=== PATIENT | female | born 1995 | race American Indian/Alaskan Native ===

== ENCOUNTER 2019-08-14 19:45 | Inpatient (IN) | payer OTHER ==
[2019-08-14] MEDS ORDERED: LACTATED RINGERS 1,000 ML IV SCH ×2 (21:00→23:00)
[2019-08-14] MEDS ORDERED: BUTORPHANOL 2 MG/1 ML INJ IV ONE (21:00)
--- NOTE | 2019-08-14 21:29 | Ultrasound Report ---
Limited obstetrical ultrasound INDICATION: , labor Intrauterine is seen with well-developed fetus in a cephalic position. Cardiac activity was documented with heart rate of 134 bpm. The placenta is fundal with no evidence of abruption. P lacental grade is 3 which is advanced for the stated gestational age of 21 weeks. Dating was not perf ormed as an anatomic survey was not performed. Assessment of amniotic fluid was not performed. Signer Name: Kirby Hernandez MD Signed: 08/14/2019 9:24 PM Workstation Name: [id number]
[2019-08-14] MEDS ORDERED: OXYTOCIN 20 UNIT/1000ML DRIP 20,000 MILLIUNITS/1,000 ML BAG IV ONE (22:05)
[2019-08-14] MEDS ORDERED: OXYTOCIN 10 UNIT/1 ML INJ ONE (22:12)
[2019-08-14] MEDS ORDERED: WITCH HAZEL/ GLYCERIN PAD TP PRN (22:44)
[2019-08-14] MEDS ORDERED: HYDROcodone/ACETAMINOPHEN 5-325 MG TAB PO PRN (22:44)
[2019-08-14] MEDS ORDERED: MAGNESIUM HYDROXIDE (MOM) ORAL LIQD UDC PO PRN (22:44)
[2019-08-14] MEDS ORDERED: PROMETHAZINE 25 MG RECT SUPP PR PRN (22:44)
[2019-08-14] MEDS ORDERED: LANOLIN/ZINC/DIMETHICONE (LANSINOH) 7 GM TP PRN (22:44)
[2019-08-14] MEDS ORDERED: OXYTOCIN 20 UNIT/1000ML DRIP 20 UNITS/1,000 ML BAG IV SCH (23:00)
--- NOTE | 2019-08-14 23:08 | History and Physical Report ---
History of Present Illness Date of examination: 08/14/19 Date of admission: 08/14/19 22:28 Chief complaint: Contractions History of present illness: 33 year old female presents in active labor. No records are available. LMP 03/20/2019. EDC unknown. Patient initiated care yesterday at [facility]. She states she did not yet have lab work done or an US. LMP 03/20/19. EDC uncerain. labs have been drawn upon admission. Past History Past Medical History: denies: no pertinent history Past Surgical History: denies: no surgical history [employer] [employer] History: denies: chlamydia, fibroids, gonorrhea, hepatitis B, hepatitis C, HIV, syphilis, trichomonas Family/Genetic History: none Social history: single. denies: smoking, alcohol abuse, prescription drug abuse, IV drug use, full code - Obstetrical History Expected Date of Delivery: 12/25/19 Actual Gestation: 21 Week(s) 1 Day(s) : 1 Para: 0 Hx # Term Pregnancies: 0 Number of Pregnancies: 0 Spontaneous Abortions: 0 Induced : 0 Number of Living Children: 0 Medications and Allergies Allergies Allergy/AdvReac Type Severity Reaction Status Date / Time Penicillins Allergy Rash Verified 08/14/19 20:11 Active Meds: Active Medications Acetaminophen/Hydrocodone Bitart ([place] 5/325) 2 each PO Q6H PRN PRN Reason: Pain, Moderate (4-6) Lactated Ringer's (Lactated Ringers) 1,000 mls @ 125 mls/hr IV DIRECT MAGUI Last Admin: 08/14/19 20:53 Dose: 125 mls/hr Documented by: Oxytocin/Sodium Chloride (Pitocin/Ns 20 Unit/1000ml Drip) 20 units in 1,000 mls @ 125 mls/hr IV DIRECT MAGUI Ibuprofen (Ibuprofen) 600 mg PO Q6HR MAGUI Magnesium Hydroxide (Milk Of Magnesia) 30 ml PO HS PRN PRN Reason: Constipation Multi-Ingredient Ointment (Lansinoh) 1 applic TP PRN PRN PRN Reason: Sore Nipples Promethazine HCl (Phenergan) 25 mg MA Q6H PRN PRN Reason: Nausea And Vomiting Sodium Chloride (Sodium Chloride Flush Syringe 10 Ml) 10 ml IV PRN NR Stop: 08/15/19 22:59 Witch Krysta/Glycerin (Tucks Pad) 1 each TP PRN PRN PRN Reason: Hemorrhoid/cleansing/soothing Review of Systems All systems: negative (pelvic pain) - Vital Signs Vital signs: Vital Signs Temp Pulse Resp BP 97.8 F 86 24 127/70 08/14/19 19:51 08/14/19 19:51 08/14/19 19:51 08/14/19 19:51 Temp Pulse Resp BP Pulse Ox 97.8 F 69 24 115/78 08/14/19 19:51 08/14/19 22:59 08/14/19 19:51 08/14/19 22:59 - Physical Exam Abdomen: Positive: other (gravid). Negative: distention, tenderness, guarding, rigidity Genitourinary (Female): Positive: normal external genitalia, normal perenium. Negative: perineal/vulvar lesions Extremities: Negative: tenderness, edema - Obstetrical Uterine Contraction Monitor Mode: External Cervical Dilatation: 10 Cervical Effacement Percentage: 100 station: Uterine Contraction Pattern: Regular Uterine Contraction Intensity: Moderate Results Result Diagrams: 08/14/19 23:40 All other labs normal. Assessment and Plan A: of unknown gestational age. Imminent delivery ( head upon my arrival to room). GBS unknown. Essentially no care (1st OB visit yesterday, no labs or US). P: Vaginal delivery. Draw labs.
--- NOTE | 2019-08-14 23:08 | Procedure Note ---
OB Delivery Note - Delivery Date of Delivery: 08/14/19 Surgeon: CHRIST JEWELL Estimated blood loss: other (400 cc) - Vaginal Delivery presentation: vertex Delivery position: OA Intrapartum events: no care, precipitous labor- <3hr Delivery induction: none Delivery monitor: external FHT, external uterine Route of delivery: Delivery placenta: spontaneous Delivery cord: 3 umbilical vessels Episiotomy: none Delivery laceration: none Anesthesia: none Delivery comments: MD called me and asked me to check a pt. in triage who was supposed to be approximately 21 weeks gestation and having pelvic pain. As I entered pt.'s room, head was and appeared to be a term or near term baby. Baby delivered immediately upon my arrival into room; baby placed skin to skin with mom immediately after delivery. Placental delivery occurred immediately after delivery, accompanied by large gush of blood. Fundus firmed with massage and with IM Pitocin. EBL 400 cc. 3 VC double clamped and cut. No lacerations noted. Vaginal sweep negative. Mother and baby stable. Essentially no care; no accurate EDC. labs ordered and drawn.
[2019-08-15 00:29] LABS: Hematocrit 35.5 % (30.3-42.9); Hemoglobin 11.5 gm/dl (10.1-14.3); Mean Corpuscular HGB Conc 32 % (30-34); Mean Corpuscular Volume 85 fl (79-97); Platelet Count 281 K/mm3 (140-440); Red Blood Count 4.16 M/mm3 (3.65-5.03); Red Cell Distribution Width 14.2 % (13.2-15.2)
[2019-08-15 00:56] LABS: Hepatitis C Virus Antibody Non-Reactive (NonReactive)
[2019-08-15] MEDS ORDERED: ACETAMINOPHEN 325 MG TAB PO ONE (01:21)
[2019-08-15 01:52] LABS: Amphetamine Screen,Urine PRESUMPTIVE NEGATIVE; Benzodiazepines Screen,Urine PRESUMPTIVE NEGATIVE; Cocaine Screen,Urine PRESUMPTIVE NEGATIVE; Methadone Screen,Urine PRESUMPTIVE NEGATIVE; Opiate Screen,Urine PRESUMPTIVE NEGATIVE
[2019-08-15] MEDS ORDERED: OXYTOCIN 10 UNIT/1 ML INJ IM ONE (02:10)
[2019-08-15 02:11] LABS: Cannabinoid Screen,Urine PRESUMPTIVE POSITIVE
[2019-08-15 11:03] LABS: Hematocrit 30.6 % (30.3-42.9)
[2019-08-15] MEDS: IBUPROFEN 600 MG TAB PO SCH ×2 (12:26→18:05)
--- NOTE | 2019-08-15 14:30 | Progress Note ---
Assessment and Plan A: day 1 S/P . HIV antigen weakly positive. Anemia. P: Confirmatory test for HIV. Advised pt. to avoid . Supplement with oral iron. Subjective - Subjective Date of service: 08/15/19 Principal diagnosis: day 1 S/P Interval history: day 1 S/P . No complaints. Pt. reports small amount of lochia. HIV antigen weakly positive. Confirmatory test has been sent. aware. Discussed result with patient and need for confirmation. Pt. states this is the first HIV test she has ever taken. Patient reports: appetite normal, voiding normally, pain well controlled, flatus, ambulating normally, no dizzy ambulation, no nauseated : doing well Objective - Vital Signs Latest vital signs: Vital Signs Temp Pulse Resp BP BP Pulse Ox 08/15/19 11:47 98.1 F 70 20 111/69 94 08/15/19 08:00 98.2 F 77 20 130/75 98 08/15/19 04:35 98.7 F 66 18 109/72 97 08/15/19 01:45 98.8 F 71 18 115/69 98 08/15/19 01:10 99.7 F H 18 08/15/19 00:29 74 141/63 08/15/19 00:14 71 131/71 08/15/19 00:05 66 98 08/15/19 00:00 73 100 08/14/19 23:55 68 100 08/14/19 23:51 81 90 08/14/19 23:50 84 100 08/14/19 23:45 75 100 08/14/19 23:40 70 98 08/14/19 23:39 72 89 08/14/19 23:35 67 93 08/14/19 23:33 76 87 08/14/19 23:30 73 98 08/14/19 23:25 74 97 08/14/19 23:22 67 86 08/14/19 23:20 73 99 08/14/19 23:15 82 98 08/14/19 23:14 71 133/74 79 L 08/14/19 23:10 93 08/14/19 23:09 95.6 F L 69 18 115/78 100 08/14/19 22:59 69 115/78 08/14/19 19:57 86 127/70 08/14/19 19:51 97.8 F 86 24 127/70 Intake and Output 08/14/19 08/15/19 08/15/19 23:59 07:59 15:59 Intake Total 240 120 Output Total 400 600 Balance -160 -480 Intake: Oral 240 120 Output: Urine 400 600 Void 400 600 Other: Total, Intake Amount 240 120 Total, Output Amount 400 600 # Voids Void 1 Weight 93.44 kg Estimated Blood Loss 300 - Exam Cardiovascular: Present: Regular rate, Normal S1, Normal S2 Lungs: Present: Clear to auscultation Abdomen: Present: normal appearance, soft. Absent: distention, tenderness, guarding, rigidity Uterus: Present: normal, firm, fundal height below umbilicus. Absent: bogginess, tenderness Extremities: Present: normal. Absent: tenderness, edema - Labs Labs: Abnormal lab results 08/14/19 08/15/19 Range/Units 23:40 09:59 WBC 19.4 H (4.5-11.0) K/mm3 Hgb 10.0 L (10.1-14.3) gm/dl
[2019-08-16] MEDS: IBUPROFEN 600 MG TAB PO SCH ×3 (00:36→18:18)
--- NOTE | 2019-08-16 14:28 | Progress Note ---
Assessment and Plan A: day 2 S/P . Anemia. Weakly positive HIV antigen test result. P: Continue iron supplementation. Obtain confirmation of HIV test result (test has been sent out, awaiting results). Subjective - Subjective Date of service: 08/16/19 Principal diagnosis: day 2 S/P Interval history: day 2 S/P . No complaints. Pt. reports small amount of lochia. HIV antigen weakly positive. Confirmatory test has been sent. Awaiting results. Patient denies fever, chills, cough, sore throat, SOB, chest pain, abdominal pain, leg pain, heavy bleeding, or any other problems. Patient reports: appetite normal, voiding normally, pain well controlled, flatus, ambulating normally, no dizzy ambulation, no nauseated : doing well, bottle feeding Objective - Vital Signs Latest vital signs: Vital Signs Temp Pulse Resp BP Pulse Ox 08/16/19 08:19 97.7 F 64 16 115/62 99 08/16/19 00:36 18 08/16/19 00:19 97.6 F 70 20 120/61 96 08/15/19 23:04 18 08/15/19 22:04 18 08/15/19 15:58 98.3 F 84 20 115/78 97 Intake and Output 08/15/19 08/16/19 08/16/19 23:59 07:59 15:59 Intake Total 480 480 120 Balance 480 480 120 Intake: Oral 480 480 120 Other: Total, Intake Amount 240 240 120 # Voids Void 1 1 - Exam Abdomen: Present: normal appearance, soft. Absent: distention, tenderness, guarding, rigidity Uterus: Present: normal, firm, fundal height below umbilicus. Absent: bogginess, tenderness Extremities: Present: normal. Absent: tenderness, edema
[2019-08-16] MEDS: FERROUS SULFATE 325 MG TAB PO SCH ×2 (14:38→22:35)
--- NOTE | 2019-08-17 10:13 | Progress Note ---
Assessment and Plan - Patient Problems (1) Status post normal vaginal delivery Current Visit: Yes Status: Acute Plan to address problem: PPD 3 - stable Discharge to home today Follow with Infectious Diseases as soon as possible Follow up at [facility] as needed or in 6 weeks for exam (2) Single live Current Visit: Yes Status: Acute (3) Anemia due to blood loss, acute Current Visit: Yes Status: Acute Plan to address problem: Asymptomatic Continue iron therapy (4) Positive urine drug screen Current Visit: Yes Status: Acute Plan to address problem: + marijuana s/p Case Management Consult (5) HIV p24 antigen positive Current Visit: Yes Status: Acute Plan to address problem: Confirmation test pending Patient to follow-up with Infectious Diseases outpatient Subjective - Subjective Date of service: 08/17/19 Principal diagnosis: PPD #3; s/p Interval history: see [facility] - H&P, OB Delivery Procedure Note and PP/[facility] Progress Notes Patient reports: appetite normal, voiding normally, pain well controlled, ambulating normally, no dizzy ambulation : bottle feeding Objective - Vital Signs Latest vital signs: Vital Signs Temp Pulse Resp BP Pulse Ox 08/17/19 08:44 98.0 F 64 18 111/61 97 08/17/19 00:46 98.5 F 86 18 112/68 96 08/16/19 16:18 97.9 F 61 20 119/65 99 Intake and Output 08/16/19 08/17/19 08/17/19 23:59 07:59 15:59 Intake Total 360 360 Balance 360 360 Intake: Oral 120 120 Intake, Free Water 240 240 Other: Total, Intake Amount 120 120 # Voids Void 1 2 - Exam Cardiovascular: Present: Regular rate Lungs: Present: Clear to auscultation, Normal air movement Abdomen: Present: normal appearance, soft Vulva: both: normal Uterus: Present: normal, firm, fundal height below umbilicus Extremities: Present: normal Comments: scant lochia
--- NOTE | 2019-08-17 10:21 | Discharge Summary ---
Providers - Providers Date of Admission: 08/14/19 22:28 Date of discharge: 08/17/19 Attending physician: ALFREDO YI 08/15/19 07:58 Consult to Case Management [CONS] Routine Services Needed at Discharge: Other Notified:: Yes Phone number called:: [phone] Primary care physician: ALFREDO YI Hospitalization Reason for admission: active labor, labor Delivery: Episiotomy: none Laceration: none Other procedures: none complications: none Discharge diagnosis: delivery [place] baby: male Hospital course: Uncomplicated Disposition: DC-01 TO HOME OR SELFCARE - Discharge Diagnoses (1) Status post normal vaginal delivery Status: Acute (2) Single live Status: Acute (3) Anemia due to blood loss, acute Status: Acute Comment: Asymptomatic Continue iron therapy Eat iron-rich foods (4) Positive urine drug screen Status: Acute Comment: positive marijuana s/p Case Management Consult (5) HIV p24 antigen positive Status: Acute Comment: Confirmation test pending Patient instructed to follow-up with Infectious Diseases as soon as possible Plan - Discharge Medications Prescriptions: Ferrous Sulfate [Feosol 325 MG tab] 325 mg PO BID #60 tablet - Provider Discharge Summary Activity: routine, no sex for 6 weeks, no heavy lifting 4 weeks, no strenuous exercise Diet: routine Instructions: routine Additional instructions: [] Smoking cessation referral if applicable(refer to patient education folder for contact #) [] Refer to [facility]'s [facility] Booklet Call your doctor immediately for: * Fever > 100.5 * Heavy vaginal bleeding ( >1 pad per hour) * Severe persistent headache * Shortness of breath * Reddened, hot, painful area to leg or breast * Drainage or odor from incision. * Keep incision clean and dry at all times and follow doctor's instructions regarding bathing/showering - Follow up plan Follow up: LAFREDO YI MD [Primary Care Provider] - 6 Weeks (Follow with Infectious Diseases as soon as possible Follow up at [facility] as needed or in 6 weeks for exam)
[2019-08-17 17:41] VITALS: BP 118/64
[2019-08-26 14:32] LABS: HIV-1 RNA QN PCR <1.30 Log cps/mL; HIV-1 RNA QN PCR <20 Copies/mL
== END 2019-08-17 14:43 | disposition home or self-care (01) | DRG 775 ==
LOC: TRG 19:45 → APU 19:46 → TRG 22:28 → LD 22:28 → EDBD 22:28 → OB 08-15 01:38
PROVIDERS: ADMIT Obstetrics & Gynecology; ATTEND Obstetrics & Gynecology
PROC: 10E0XZZ Delivery of Products of Conception, External Approach (ICD-10-PCS; principal; 2019-08-14)
DX: O62.3 Precipitate labor (principal); O60.12X0 Preterm labor second trimester with preterm delivery second trimester, not applicable or unspecified; Z37.0 Single live birth; Z88.0 Allergy status to penicillin; O90.81 Anemia of the puerperium; D62 Acute posthemorrhagic anemia; Z3A.21 21 weeks gestation of pregnancy
CPT/HCPCS: 36415; 59025; 76815; 80307; 83036; 85014; 85018; 85027; 86592; 86689; 86706; 86762; 86803; 86850; 86900; 86901; 87086; 87536; 87806; 88305; 88307; 96360; 96372; G0378; J0595; J2590; J7120